=== PATIENT | female | born 1940 | race African-American/Black ===

== ENCOUNTER → 2016-11-10 | Day surgery (SDC) | payer OTHER, MEDICARE ==
[~2016-11-10] VITALS: Ht 162.6 cm; Wt 80.7 kg
[~2016-11-10] MED LIST: AMLODIPINE BESY10 M1 PO; ASPIRIN EC81 M1 PO; CILOSTAZOL50 M1 PO; COREG25 M1 PO; FUROSEMIDE40 M1 PO; LISINOPRIL30 M1 PO; MAGNESIUM500 M2 PO; METFORMIN HCL750 M1 PO; NEXIUM20 M1 PO; PRAVACHOL80 M1 PO
--- NOTE | 2016-11-11 16:12 | RADIOLOGY REPORT ---
EXAMINATION: XR INTRAOPERATIVE FLUOROSCOPY AND SPOT FILMS CLINICAL INFORMATION: Left leg angioplasty with stent placement. COMPARISON: None TECHNIQUE/FINDINGS: Intraoperative fluoroscopy was provided in the operating room for the performance of a left leg angioplasty with stent placement. 32 fluoroscopic runs were performed and are archived in PACS for review. FLUOROSCOPY TIME: 50.8 seconds. IMPRESSION: Administrative dictation for intraoperative fluoroscopy and spot films.
--- NOTE | 2016-12-22 13:15 | Operative Report ---
Operative/Inv Procedure Report Surgery Date: 11/10/16 Name of Procedure: Left Femoral Angioplasty and Stent Placement Pre-Operative Diagnosis: PAD Post-Operative Diagnosis: Left femoral stenosis Estimated Blood Loss: less than 50ml Surgeon/[employer] Contractor: ACE GRAHAM MD Anesthesia: local monitored anesthesi Operative/Procedure Note Note: Patient was placed on the operating room table in supine position. Left groin was prepped and sraped in sterile fashion. An antergrade puncture was made in the left common femoral artery. Guidewire was placed intot the left superficial femoral artery. 5 Fr introducer was placed in ther femoral artery. Angiogram was performed. The angiogram revealed a high-grade stenosis in the distal superficial femoral artery. This lesion was treated using 5mm angioplasty followed by 6mm x 2cm stent. Completion arteriogram revealsed a good result. There was a complete occlusion of the trifurcation distally. However, there was good collateral flow into the distal peroneal arteries and foot. All instruments were removed from the patient. Compression was maintained over the punture site until satisfactory hemostasis was achieved. Patient was transported to the recovery room in stable condition. Findings: Left femoral stenosis
== END ==
LOC: SDA 03:49 → EDSTATUS 07:00 → STS 08:00
DX: I70.202 Unspecified atherosclerosis of native arteries of extremities, left leg (principal); I10 Essential (primary) hypertension; E11.9 Type 2 diabetes mellitus without complications; Z79.84 Long term (current) use of oral hypoglycemic drugs; E78.5 Hyperlipidemia, unspecified; K21.9 Gastro-esophageal reflux disease without esophagitis; Z95.2 Presence of prosthetic heart valve
CPT/HCPCS: SDA; 73552; C1725; J0131; J1100; J1644; J2405